=== PATIENT | male | born 1975 | race Caucasian/White ===

== ENCOUNTER 2023-08-13 09:39 | Emergency (ER) | payer BC, OTHER, SELFPAY ==
[2023-08-13 09:45] VITALS: BP 135/92
[2023-08-13 10:31] LABS: % Basophils 1.4 % (0-2); % Eosinophils 0.7 % (0-6); % Immature Granulocytes 0.4 % (0-0.5); % Lymphocytes 22.2 % (20.5-51.1); % Monocytes 11.9 % (1.7-9.3); % Neutrophils 63.4 % (42.2-75.2); Absolute Basophils 0.1 10^3/uL (0-0.2); Absolute Lymphocytes 1.2 10^3/uL (1.2-3.4); Absolute Monocytes 0.7 10^3/uL (0.1-0.6); Absolute Neutrophils 3.5 10^3/uL (1.4-6.5); Hematocrit 46.8 % (39.0-52.0); Hemoglobin 16.3 g/dL (13.0-18.0); Mean Corp Hgb Conc. 34.8 g/dL (33.0-37.0); Mean Corpuscular Hgb 31.7 pg (27.0-31.0); Mean Corpuscular Volume 91.1 fL (80.0-94.0); Mean Platelet Volume 8.7 fL (7.4-10.4); Nucleated Red Blood Cells % 0 % (-); Platelet Count 120 10^3/uL (130-400); Red Blood Cell Count 5.14 10^6/uL (4.70-6.10); Red Cell Dist. Width 13.2 % (11.5-14.5); White Blood Cell Count 5.6 10^3/uL (4.8-10.8)
[2023-08-13 10:32] LABS: Venous Blood Gas B.E. 4.1 mmol/L (-4 to +4); Venous Blood Gas HCO3 27.6 mmol/L (22-27); Venous Blood Gas O2 Sat % 96.3 %; Venous Blood Gas O2 Therapy 21; Venous Blood Gas pCO2 37 mmHg (35-48); Venous Blood Gas pH 7.48 (7.32-7.43); Venous Blood Gas pO2 75 mmHg (30-50)
[2023-08-13] MEDS: PROTONIX IV 80 MG IV (10:41)
[2023-08-13] MEDS: NSS 1000 IV (10:42)
[2023-08-13 10:43] VITALS: BP 130/80
[2023-08-13 10:45] VITALS: BMI 20.7
[2023-08-13 10:45] LABS: Lactic Acid 3.8 mmol/L (0.7-2.0)
[2023-08-13 10:46] LABS: ALT (SGPT) 86 U/L (0-50); AST (SGOT) 131 U/L (17-59); Albumin 5.3 g/dl (3.5-5.0); Alkaline Phosphatase 74 U/L (38-126); Blood Urea Nitrogen 14 mg/dl (9-20); Calcium 9.1 mg/dl (8.4-10.2); Carbon Dioxide 26 mmol/L (22-30); Chloride 94 mmol/L (98-107); Glucose 128 mg/dl (70-99); Lipase 66 U/L (23-300); Potassium 3.6 mmol/L (3.5-5.1); Sodium 140 mmol/L (135-145); Total Bilirubin 1.6 mg/dl (0.2-1.3); Total Protein 7.8 g/dl (6.3-8.2); eGFR > 60.00
[2023-08-13 11:00] VITALS: BP 130/83
[2023-08-13] MEDS: D5/0.9% SODIUM CHLORIDE 1000 IV (11:18)
[2023-08-13 12:00] VITALS: BP 122/75
[2023-08-13] MEDS: ZOFRAN 4 MG IV (12:22)
[2023-08-13] MEDS: ATIVAN 1 MG IV (12:31)
[2023-08-13 13:00] VITALS: BP 122/75
[2023-08-13 14:00] VITALS: BP 114/82
--- NOTE | 2023-08-13 14:18 | ED.GENMED ---
History of Present Illness
General
Chief Complaint: Abdominal Symptoms
Source: patient
Exam Limitations: none
Time Seen by Provider: 08/13/23 10:01
Travel History
Have you had any contact with someone who has COVID-19?: No
Do you have any symptoms of coronavirus? Fever > 100 degrees, chills, cough, shortness of breath, sore throat, loss of taste or smell, muscle aches, or headache?: No
History of Present Illness
History of Present Illness:
48-year-old male with a history of chronic alcoholism who presents with intractable vomiting for the last 3 days. Patient states he has not been able to drink alcohol. He was still drinking alcohol when the symptoms began. He denies seizures. He
denies tremulousness. No melena or hematochezia. No real abdominal pain except when he vomits. Does have a history of pancreatitis
Past History
Past History
ED Past Medical History: Seizures, Psychiatric and Other (Alcohol abuse)
ED Past Surgical History: Other (Right inguinal hernia repair)
Patient has exhibited threatening behavior?: No
PSI?: No
Social History
Tobacco: Non-smoker
Alcohol: Daily
Drug: Marijuana
Personal: Single
Living: [facility]
Family History
Family History: Other
Phy Exam
Physical Exam
Physical Exam:
CONSTITUTIONAL Patient alert and oriented to person, place and time. Well-appearing. Vital signs reviewed.
HEAD atraumatic, normocephalic.
EYES eyelids normal to inspection, Pupils equally round and reactive to light, Extraocular muscles intact, Conjunctiva normal, Sclera normal.
NECK normal range of motion, Trachea midline, no jugular venous distention.
RESPIRATORY CHEST No respiratory distress noted, Chest expansion equal, Bilateral breath sounds clear.
CARDIOVASCULAR regular rate and rhythm, Heart sounds normal.
ABDOMEN mild epigastric tenderness, Bowel sounds normal. No distention.
BACK normal inspection, no obvious deformities
UPPER EXTREMITY range of motion normal, Motor strength normal, no cyanosis, no edema.
LOWER EXTREMITY range of motion normal, Motor strength normal, no cyanosis, no edema.
NEURO Speech normal, No focal motor deficits, Broadalbin coma scale 15, Memory normal, Cranial Nerves intact to screening exam.
SKIN skin warm, dry, and normal in color.
PSYCHIATRIC patient oriented to person place and time, Normal affect.
Course
Orders/Labs/Results
Orders:
Orders
08/13/23 10:08
0.9% Sodium Chloride 1000 ml [Nss] 1,000 ml IV BOLUS
08/13/23 10:17
Pantoprazole [Protonix IV] 80 mg IV NOW STA
08/13/23 10:19
Complete Blood Count/With Diff Urgent
Comprehensive Metabolic Panel Urgent
Lactic Acid Urgent
Lipase Urgent
Venous Blood Gas Urgent
%Oxygen/Room Air: 21
08/13/23 11:00
Dextrose 5%/0.9%Sodchl 1000 ml [D5/0.9% Sodium Chloride] 1,000 ml IV 200 mls/hr
08/13/23 12:17
Ondansetron Injectable [Zofran] 4 mg IV NOW STA
08/13/23 12:24
Lorazepam [Ativan] 1 mg IV NOW STA
Abnormal Lab Results
08/13/23
10:19
MCH 31.7 H pg
(27.0-31.0)
Plt Count 120 L 10^3/uL
(130-400)
Absolute Monos (auto) 0.7 H 10^3/uL
(0.1-0.6)
Monocytes % 11.9 H %
(1.7-9.3)
VBG pH 7.48 H
(7.32-7.43)
VBG pO2 75 H mmHg
(30-50)
VBG HCO3 27.6 H mmol/L
(22-27)
Chloride 94 L mmol/L
(98-107)
Creatinine 0.6 L mg/dL
(0.7-1.3)
Glucose 128 H mg/dl
(70-99)
Lactic Acid 3.8 H mmol/L
(0.7-2.0)
Total Bilirubin 1.6 H mg/dl
(0.2-1.3)
AST 131 H U/L
(17-59)
ALT 86 H U/L
(0-50)
Albumin 5.3 H g/dl
(3.5-5.0)
08/13/23 10:19
08/13/23 10:19
Vital Signs
Initial and Last Documented VS:
Initial Vital Signs
Temp Pulse Resp BP Pulse Ox
97.9 F 98 16 135/92 98
08/13/23 09:45 08/13/23 09:45 08/13/23 09:45 08/13/23 09:45 08/13/23 09:45
Last Documented Vital Signs
Temp Pulse Resp BP Pulse Ox
97.9 F 79 19 114/82 93
08/13/23 09:45 08/13/23 14:15 08/13/23 14:15 08/13/23 14:00 08/13/23 14:15
MDM/Problems Addressed
MDM/Problems Addressed:
Acute alcoholic gastritis, acute alcoholic ketoacidosis, alcohol abuse
*Pulse Oximetry
Patient hypoxic: no
*Critical Care Note
Total Time (30-74mins, 75-104mins- exclusive of procedures): 30 minutes
Data Reviewed
Source: patient
Further Testing Considered But Not Given:
Consider CT but abdomen benign. Patient feels better
Patient Management
Escalation/DeEscalation of care consider admission/obs:
On reevaluation feels much better after IV fluids and IV dextrose. Suspect a mild AKA as well as alcoholic ketoacidosis. Patient is not in withdrawal currently patient does want to quit. Will give him tapering doses of Valium for home management.
Treat with PPI.
ED Attending Note
-
Portions of this chart may have been created with voice recognition software.� Occasional wrong word or��sound alike� substitutions may have occurred due to the inherent limitations of voice recognition software.
Discharge Plan
Departure
Patient Disposition: Home (Routine Discharge)
Date of Disposition: 08/13/23
Time of Disposition: 14:19
Patient with high blood pressure during this ER visit?: No
Discharge Problem:
Acute alcoholic gastritis, Alcohol abuse
Instructions: Gastritis, Clear Liquid Diet, Alcohol Use Disorder ED
Prescriptions:
New
diazepam 10 mg tablet
10 mg PO TID Qty: 16 0RF
Rx Instructions:
Take 10mg TID x 3 days, then 10mg BID x 3 days then 10mg qhs x 3 days
pantoprazole [Protonix] 40 mg tablet,delayed release (DR/EC)
40 mg PO DAILY Qty: 30 0RF
Rx Instructions:
Please take 30 minutes prior to eating or drinking anything in the morning.
ondansetron 4 mg tablet,disintegrating
4 mg PO TID PRN (Reason: nausea and vomiting) Qty: 15 0RF
No Action
olanzapine 10 mg Tablet
10 mg PO BID
Cetaphil Moisturizing Lotion
1 applic TOPICAL BID
Referrals:
NONE,* [Family Provider] -
Activity Restrictions/Additional Instructions:
Please avoid alcohol while taking Valium. Please seek assistance with your alcoholism. Return immediately for intractable vomiting, bloody stool, black stools, bloody vomit, abdominal pain, hallucinations, tremulousness, seizures or any other
concerns
Please stick to a bland diet and advance diet slowly. Maintain proper hydration. See your doctor in the next 2 to 3 days for follow-up and reevaluation
Interventions
Interventions:
*Risk Screen - Suicide Last Done: 08/13/23 10:45
*General Assessment Last Done: 08/13/23 10:45
*Neglect/Abuse Screening Last Done: 08/13/23 10:45
ED- Fall Risk Assessment Last Done: 08/13/23 10:45
*ED COVID-19 Vaccine History Last Done: 08/13/23 09:45
QQ-Qxacfv-Ldbinfgtag Assessment Last Done: 08/13/23 10:45
Discharge Date and Time
Print Language: UKRAINIAN
== END 2023-08-13 15:59 | disposition home or self-care (01) ==
LOC: EMR 09:39
PROVIDERS: EMERGENCY PHYSICIAN Emergency Medicine
DX: K29.20 Alcoholic gastritis without bleeding (principal); R11.10 Vomiting, unspecified; R56.9 Unspecified convulsions; Z87.19 Personal history of other diseases of the digestive system
CPT/HCPCS: 99291; 96374; 96375 ×2; 96361 ×5; 80053; 82805; 83605; 83690; 85025

== ENCOUNTER 2023-09-28 12:37 | Inpatient (IN) | payer BC, OTHER, SELFPAY ==
[2023-09-28] VITALS (14 sets, daily range): BP systolic 96–134; BP diastolic 64–81; BMI 19.8; BMI 19.9
--- NOTE | 2023-09-28 09:38 | EDRN ---
Dr. Osorio in room w/pt at this time.
--- NOTE | 2023-09-28 09:44 | ED.GENMED ---
History of Present Illness
General
Chief Complaint: Abdominal Symptoms
Source: patient
Time Seen by Provider: 09/28/23 09:35
History of Present Illness
History of Present Illness:
48-year-old male with a history of alcohol use disorder, pancreatitis, and seizures presents emergency department with abdominal pain located in the upper epigastric area without radiation that he noted approximately 5 AM today. The pain continues
and is associated with nausea and nonbloody vomiting. He denies coffee-ground emesis, diarrhea, chest pain, dyspnea, fever, chills, back pain, lower abdominal pain, or other complaints. His last drink of alcohol was at approximately 7 AM.
Past History
Past History
ED Past Medical History: Seizures, Psychiatric and Other (Alcohol abuse)
ED Past Surgical History: Other (Right inguinal hernia repair, rectal prolapse)
Patient has exhibited threatening behavior?: No
PSI?: No
Social History
Tobacco: Non-smoker
Alcohol: Daily
Drug: Marijuana
Personal: Single
Living: with roommate
Family History
Family History: Other
Phy Exam
Physical Exam
Physical Exam:
GENERAL: Alert , obviously just vomited
EYE: pupils equal and reactive
NECK: Supple, no significant adenopathy.
ENT: o/p clr, mm very dry, poor dentition
CARDIAC: Regular rate and rhythm .
LUNGS: Clear breath sounds bilaterally, no acute respiratory distress, no wheezes/rales/rhonchi
ABDOMEN: Soft, mild epigastric tenderness, no r/g, no cvat
NEUROLOGICAL: Alert and oriented, no focal neuro deficits
SKIN: Warm and dry, skin intact.
MUSCULOSKELETAL: No edema, well perfused.
PSYCH: Normal and appropriate interaction.
Course
Orders/Labs/Results
Orders:
Orders
09/28/23 Breakfast
Clear Liquid
09/28/23 09:43
Cardiac Monitoring- Treatment ONCE
0.9% Sodium Chloride 1000 ml [Nss] 1,000 ml IV BOLUS
Morphine Sulfate 2 mg IV NOW STA
Ondansetron Injectable [Zofran] 4 mg IV NOW STA
Pantoprazole [Protonix IV] 40 mg IV NOW STA
09/28/23 09:55
Complete Blood Count/No Diff Urgent
Comprehensive Metabolic Panel Urgent
Lipase Urgent
09/28/23 10:59
Morphine Sulfate 6 mg IV NOW STA
US Abdomen Complete/Upper Urgent
Comment:
Reason For Exam: pancreatitis
09/28/23 12:17
Admit/Transfer Patient As Directed
Co-Sign Provider:
Level of Care: Inpatient admission
Assign to:: Medical/Surgical
Physician / Group: priti rios
Diagnosis: acute pancretitis and alcohol use disorder
Reason for Hospitalization: acute pancreatitis and alcohol use disorder
Expected length of stay greater than two midnights?: Yes
ELOS- Estimated Length of Stay in days: 3
I certify the patient meets the requirements for IP care: Yes
PRN Pain Medication Management As Directed
May give lesser potent ordered pain med per pt: Yes
preference::
Protocol:: Medication orders for pain may be administered in a
manner that supports deferring to patient preference
when the pt is:
- Requesting an ordered lesser potent pain medication.
Least to most potent pain medications are defined
as: acetaminophen < NSAID < tramadol < opioids
(morphine, oxycodone, hydromorphone).
- Requesting a lesser dose of the same medication IF
ORDERED.
- Requesting a less intrusive route of administration
if both routes are prescribed by the provider (PO <
IV).
09/28/23 12:24
HYDROmorphone [Dilaudid] 0.5 mg IV Q4HPRN PRN
09/28/23 12:34
Urinalysis Routine
09/28/23 13:00
Lactated Ringers [Lr] 1,000 ml IV 200 mls/hr
09/28/23 14:00
Oxazepam [Serax] 15 mg PO Q8H
Abnormal Lab Results
09/28/23
09:55
Plt Count 116 L 10^3/uL
(130-400)
Carbon Dioxide 21 L mmol/L
(22-30)
Creatinine 0.6 L mg/dL
(0.7-1.3)
Glucose 100 H mg/dl
(70-99)
AST 204 H U/L
(17-59)
ALT 119 H U/L
(0-50)
Lipase 2711 H* U/L
(23-300)
09/28/23 09:55
09/28/23 09:55
Vital Signs
Initial and Last Documented VS:
Initial Vital Signs
Temp Pulse Resp BP Pulse Ox
97.2 F 89 18 107/69 96
09/28/23 09:09 09/28/23 09:09 09/28/23 09:09 09/28/23 09:09 09/28/23 09:09
Last Documented Vital Signs
Temp Pulse Resp BP Pulse Ox
97.2 F 87 17 98/66 95
09/28/23 09:09 09/28/23 13:30 09/28/23 13:30 09/28/23 13:00 09/28/23 13:30
*Critical Care Note
Total Time (30-74mins, 75-104mins- exclusive of procedures): Not Applicable
Update Note
Update Note:
Patient presents to the Emergency Department with ___epigastric pain and vomiting
Number and Complexity of Problems Addressed at the Encounter
� Chronic conditions affecting care:
� Acute Exacerbation and/or Progression of Chronic Illness:
� Differential Diagnosis includes: But not limited to AKA, gastritis, peptic ulcer disease, pancreatitis, etc. etc.
Amount and/or Complexity of Data to be Reviewed and Analyzed
� I performed an independent evaluation of and my interpretation is:
EKG:
CT:
Xrays:
Laboratory Studies:nonspecific lft abnl, lipase 2711
Other:us Peripancreatic fluid collection extending across the midline in to the region of cherelle hepatis which may be related to the given history of pancreatitis. No abnormal focal pancreatic lesion is identified at sonography,
evaluation somewhat limited by overlying bowel gas.
2. Increased hepatic echogenicity most likely representing moderate to severe fatty infiltration.
� Review of other/old records reveals:
� Clinical information was obtained by an independent historian:
� Prescriptions/Medications Considered but not given:
� Further testing considered but not performed:
Risk of Complications and/or Morbidity or Mortality of Patient Management
� Social determinants of health affecting care:
� Discussion with other providers (PCP, Hospitalists, Consultants, etc): lonares saw pt, he is not ready for inpt rehab but willingto consider outpatient,w [facility] is arranging.
� Escalation of care including admission/observation vs risk of discharge considered: pancreatitis noted, suspect etoh related, no stones or other suggested abnl. Hospitliast aware of admission.
ED Attending Note
-
Portions of this chart may have been created with voice recognition software.� Occasional wrong word or��sound alike� substitutions may have occurred due to the inherent limitations of voice recognition software.
Discharge Plan
Departure
Patient Disposition: Admit
Date of Disposition: 09/28/23
Time of Disposition: 11:16
Admit to: Med/Surg
Presentation/result/management discussed w/ accepting MD/DO: Hospitalist
Condition: Fair
Discharge Problem:
Alcohol induced acute pancreatitis
Interventions
Interventions:
*Risk Screen - Suicide Last Done: 09/28/23 09:09
*General Assessment Last Done: 09/28/23 09:09
*Neglect/Abuse Screening Last Done: 09/28/23 09:09
ED- Fall Risk Assessment Last Done: 09/28/23 09:39
*ED COVID-19 Vaccine History Last Done: 09/28/23 09:09
NU-Ufacmx-Cjmayogrtw Assessment Last Done: 09/28/23 10:28
[2023-09-28] MEDS: NSS 1000 IV (10:03)
[2023-09-28] MEDS: PROTONIX IV 40 MG IV (10:04)
[2023-09-28] MEDS: ZOFRAN 4 MG IV ×2 (10:04→20:35)
[2023-09-28] MEDS: MORPHINE SULFATE 2 MG IV (10:04)
--- NOTE | 2023-09-28 10:15 | EDRN ---
James watters/ Cynthia in room w/pt at this time.
[2023-09-28 10:16] LABS: Hematocrit 44.3 % (39.0-52.0); Hemoglobin 15.4 g/dL (13.0-18.0); Mean Corp Hgb Conc. 34.8 g/dL (33.0-37.0); Mean Corpuscular Volume 89.1 fL (80.0-94.0); Mean Platelet Volume 9.5 fL (7.4-10.4); Platelet Count 116 10^3/uL (130-400); Red Blood Cell Count 4.97 10^6/uL (4.70-6.10); Red Cell Dist. Width 12.8 % (11.5-14.5); White Blood Cell Count 6.3 10^3/uL (4.8-10.8)
[2023-09-28 10:21] LABS: ALT (SGPT) 119 U/L (0-50); AST (SGOT) 204 U/L (17-59); Alkaline Phosphatase 85 U/L (38-126); Blood Urea Nitrogen 12 mg/dl (9-20); Calcium 8.8 mg/dl (8.4-10.2); Carbon Dioxide 21 mmol/L (22-30); Chloride 99 mmol/L (98-107); Glucose 100 mg/dl (70-99); Potassium 3.5 mmol/L (3.5-5.1); Sodium 141 mmol/L (135-145); Total Bilirubin 1.3 mg/dl (0.2-1.3); Total Protein 7.1 g/dl (6.3-8.2); eGFR > 60.00
[2023-09-28 10:35] LABS: Lipase 2711 U/L (23-300)
--- NOTE | 2023-09-28 10:56 | EDRN ---
Pt states he remains in severe pain w/ no change post medication administration. TT sent by this RN concerning this to Dr. Osorio at this time.
[2023-09-28] MEDS: MORPHINE SULFATE 6 MG IV (11:07)
--- NOTE | 2023-09-28 12:35 | HPS.HSE ---
Family Physician
-
Family Physician: * NONE
Chief Complaint
-
abd pain
History of Present Illness
48 male history of alcohol use disorder presenting with acute onset of epigastric abdominal pain that began 5:00 this morning, rated 10/10, nonradiating, sharp and constant without improvement. Currently states current pain is 9/10 after receiving
8 mg of morphine in the ED. Associated nausea no vomiting. Has a history of this 2 years ago at that time again related to alcohol use. Still has his gallbladder.
Does not smoke cigarettes, uses medicinal marijuana, daily alcohol use with 2 pints of vodka. Last drink 7 AM prior to presenting to the hospital. Known history of alcohol withdrawal seizures.
Surgical history right-sided inguinal hernia repair
Family history father with colorectal cancer
No home medication use
No known drug allergies
NAD, resting comfortably in bed
Scleral anicteric
Moist mucous membranes
No JVD
CTA bilateral
Normal S1-S2 no murmurs
Soft Epigastric TTP nondistended bowel sounds active
No peripheral pitting edema
Moves extremities spontaneously
AAOx3
Acute pancreatitis
Likely secondary to alcohol use disorder. Abdominal ultrasound pending.
-IV fluids with LR at a rate of 2
-IV analgesia
-IV antiemetics
-N.p.o.
Alcohol use disorder with known history of alcohol withdrawal seizure
-Start jiozvf-ets-pbdyf Serax 15 mg every 8, wean as tolerated
-MSAS protocol along with Ativan ordered as needed
-Thiamine IV
-Folate IV, transition to p.o. once n.p.o. status lifted
Metabolic acidosis. Suspect multifactorial in the setting of starvation ketosis and alcohol ketosis. Can check urine analysis for urine ketones. Provide IV fluids expect to improve. If determined to be starvation ketosis may need to consider
dextrose containing LR
Medical History
Past Medical History
Past Medical History: Reports Other
Past Surgical History: Reports Other
Social History
Tobacco: Non-smoker
Alcohol: Chronic Alcoholic
Drug: Marijuana (Medicinal)
Employment: Employed (at [employer], works as lpn private duty or pumps gas)
Family History
Family History: Cancer
Allergies / Home Medications
Allergies reflects when Allergies were last updated in ipsy.
Home Medications with original date entered in ipsy
Allergy/Medication List:
Allergies
Allergy/AdvReac Type Severity Reaction Status Date / Time
No Known Allergies Allergy Verified 09/28/23 09:09
Home Medications
No Meds [No Current Medications] 09/28/23
Review of Systems
-
A 12 point ROS was completed and negative except as noted: Yes
Physical Exam
Vital Signs
Vital Signs
Temp Pulse Resp BP Pulse Ox
97.2 F 88 20 101/75 99
09/28/23 09:09 09/28/23 11:00 09/28/23 11:00 09/28/23 11:00 09/28/23 11:00
Physical Exam
General: Pain
Laboratory Results
-
09/28/23 09:55
09/28/23 09:55
Laboratory Results
Total Bilirubin 1.3 mg/dl (0.2-1.3) 09/28/23 09:55
AST 204 U/L (17-59) H 09/28/23 09:55
ALT 119 U/L (0-50) H 09/28/23 09:55
Alkaline Phosphatase 85 U/L (38-126) 09/28/23 09:55
Lipase 2711 U/L (23-300) H* 09/28/23 09:55
Impression/Plan
-
ivf
antiemetics
iv analgesics
[2023-09-28] MEDS: SERAX 15 MG PO ×2 (15:21→22:50)
[2023-09-28] MEDS: LR 1000 IV ×3 (15:29→21:58)
[2023-09-28 16:43] LABS: Magnesium 1.4 mg/dl (1.6-2.3); Phosphorus 4.8 mg/dl (2.5-4.5)
[2023-09-28] MEDS: THIAMINE INJECTION 200 MG IV (18:12)
[2023-09-28] MEDS: LOVENOX 40 MG SC (18:13)
[2023-09-28] MEDS: FOLVITE 50.2 MG IV (18:35)
[2023-09-28] MEDS: ATIVAN 1 MG PO (21:13)
[2023-09-29] MEDS: THIAMINE INJECTION 200 MG IV ×3 (00:12→15:35)
[2023-09-29 00:33] LABS: Urine Albumin Negative (Neg - Trace); Urine Bilirubin Negative (Negative); Urine Character Clear (Clear); Urine Color Yellow; Urine Glucose 3+ (Negative); Urine Ketone 3+ (Negative); Urine Leukocyte Negative (Negative); Urine Nitrite Negative (Negative); Urine Occult Blood Negative (Negative); Urine Specific Gravity 1.025 (<1.030); Urine Urobilinogen Negative (Neg - 1+)
[2023-09-29] MEDS: ATIVAN 1 MG PO (02:04)
[2023-09-29] MEDS: LR 1000 IV ×5 (03:03→21:58)
[2023-09-29] MEDS: SERAX 15 MG PO ×3 (05:25→21:54)
[2023-09-29 07:40] VITALS: BP 129/87
[2023-09-29] MEDS: DILAUDID 0.5 MG IV ×3 (08:16→20:14)
[2023-09-29] MEDS: ZOFRAN 4 MG IV ×2 (08:16→15:35)
--- NOTE | 2023-09-29 11:55 | W.PN.HOSP.TC ---
Addendum entered and electronically signed by Brennan Hilliard MD 09/29/23 11:59:
NAD, resting comfortably in bed
Scleral anicteric
Moist mucous membranes
No JVD
CTA bilateral
Normal S1-S2 no murmurs
Soft epigastric tenderness nondistended bowel sounds active
No peripheral pitting edema
Moves extremities spontaneously
AAOx3
Original Note:
Today's Communication/Plan
-
Collicular liquid diet advance as tolerated
IV fluids antiemetics
Continue thiamine folate IV
Assessment / Plan
Assessment / Plan
Acute pancreatitis
Likely secondary to alcohol use disorder. Abdominal ultrasound pending.
-IV fluids with LR at a rate of 200
-IV analgesia
-IV antiemetics
-CLD advance as tolerated
Alcohol use disorder with known history of alcohol withdrawal seizure
-Start [id number]-mwt-brgmn Serax 15 mg every 8, wean as tolerated
-MSAS protocol along with Ativan ordered as needed
-Thiamine IV
-Folate IV
Anticipated Discharge: Today
Subjective/Interval History
-
Date of Service: September 29, 2023
Seen and examined. Feels better. Continues to have abdominal pain epigastric slightly improved however lower abdominal pain improved significantly. He would like to continue on a clear liquid diet today. Stool is liquid.
From a alcohol withdrawal standpoint tolerating well. Without evidence of delirium tremens at this time however we are only at the 28-hour hian
Objective Data
-
Vital Signs:
Vital Signs
Temp Pulse Resp BP Pulse Ox
98.6 F 81 18 129/87 95
09/29/23 07:40 09/29/23 07:40 09/29/23 07:40 09/29/23 07:40 09/29/23 07:40
I&O
09/28/23 09/29/23 09/30/23
06:59 06:59 06:59
Intake Total 2940 / 2940
Output Total 300 / 300
Balance 2640 / 2640
--- NOTE | 2023-09-29 14:16 | CM ---
Reviewed the chart notes and spoke with the patient at the bedside. The patient resides with his landlady in a two story home with six steps to enter. The patient reports no DME/VN/SNF in the past. The patient confirmed his pharmacy of choice is
the [facility]. The patient spoke with James from [facility] and will follow-up with him once discharged for outpatient rehab. CM continues to be available to patient/family and is monitoring medical plan for needs at discharge.
Plan: Discharge to home when medically stable. No needs identified at this time.
[2023-09-29 15:30] VITALS: BP 136/84
[2023-09-29] MEDS: FOLVITE 50.2 MG IV (17:31)
[2023-09-29] MEDS: LOVENOX 40 MG SC (17:31)
--- NOTE | 2023-09-29 21:24 | PTCARENOTE ---
Received patient for the night. Patient complains of 5/10 mid abdominal pain, but reports it has been improving. PRN pain medication administered. No other complaints from the pt at this time. Call [facility] within reach.
[2023-09-29 23:05] VITALS: BP 145/84
[2023-09-30] MEDS: LR IV (00:23)
[2023-09-30] MEDS: THIAMINE INJECTION 200 MG IV ×2 (00:26→08:32)
[2023-09-30] MEDS: LR 1000 IV ×2 (03:12→08:41)
[2023-09-30] MEDS: SERAX 15 MG PO (05:15)
[2023-09-30 06:51] LABS: Hematocrit 39.3 % (39.0-52.0); Hemoglobin 14.1 g/dL (13.0-18.0); Mean Corp Hgb Conc. 35.9 g/dL (33.0-37.0); Mean Corpuscular Hgb 31.8 pg (27.0-31.0); Mean Corpuscular Volume 88.7 fL (80.0-94.0); Red Blood Cell Count 4.43 10^6/uL (4.70-6.10); Red Cell Dist. Width 12.2 % (11.5-14.5); White Blood Cell Count 9.8 10^3/uL (4.8-10.8)
[2023-09-30 07:15] LABS: Blood Urea Nitrogen 4 mg/dl (9-20); Calcium 8.3 mg/dl (8.4-10.2); Carbon Dioxide 33 mmol/L (22-30); Chloride 87 mmol/L (98-107); Estimated Creatinine Clearance > 125 ml/min; Glucose 116 mg/dl (70-99); Potassium 3.5 mmol/L (3.5-5.1); Sodium 128 mmol/L (135-145); eGFR > 60.00
[2023-09-30 07:32] VITALS: BP 132/83
[2023-09-30 08:18] LABS: Mean Platelet Volume 9.5 fL (7.4-10.4); Platelet Count 89 10^3/uL (130-400)
[2023-09-30 09:34] LABS: Blood Urea Nitrogen 4 mg/dl (9-20); Calcium 8.4 mg/dl (8.4-10.2); Carbon Dioxide 30 mmol/L (22-30); Chloride 88 mmol/L (98-107); Estimated Creatinine Clearance > 125 ml/min; Glucose 117 mg/dl (70-99); Potassium 3.1 mmol/L (3.5-5.1); Sodium 128 mmol/L (135-145); eGFR > 60.00
--- NOTE | 2023-09-30 10:25 | W.PN.HOSP.TC ---
Today's Communication/Plan
-
able to tolerate advanced diet can dc home
Assessment / Plan
Assessment / Plan
Acute pancreatitis
Likely secondary to alcohol use disorder. Abdominal ultrasound pending.
-IV fluids with LR at a rate of 200
-IV analgesia, discontinue Dilaudid. Start morphine 1 mg as needed every 4 moderate pain, Toradol IV 15 mg every 8 as needed
-IV antiemetics
-Advance diet as tolerated to low fat
Alcohol use disorder with known history of alcohol withdrawal seizure
-Start duhadf-ngy-kvadg Serax 15 mg every 8, wean as tolerated
-MSAS protocol along with Ativan ordered as needed
-Thiamine IV
-Folate IV
-Consult social work for outpatient alcohol rehab resources
If able to tolerate advance diet today can be discharged home
Anticipated Discharge: Today
Subjective/Interval History
-
Date of Service: September 30, 2023
Seen and examined. No new complaints. No acute overnight events.
Tolerating clear liquid diet well. Would like advance diet.
Continues to have abdominal pain however states that the Dilaudid is not working well and would like to try some house or no analgesics support
Objective Data
-
Labs:
Laboratory Results
09/30/23 09/30/23
05:44 08:39
WBC 9.8
Hgb 14.1
Hct 39.3
Plt Count 89 L D
Sodium 128 L D 128 L
Potassium 3.5 3.1 L
Chloride 87 L 88 L
Carbon Dioxide 33 H 30
BUN 4 L 4 L
Creatinine 0.5 L 0.5 L
Glucose 116 H 117 H
Calcium 8.3 L 8.4
Vital Signs:
Vital Signs
Temp Pulse Resp BP Pulse Ox
98.4 F 85 18 132/83 95
09/30/23 07:32 09/30/23 07:32 09/30/23 07:32 09/30/23 07:32 09/30/23 07:32
I&O
09/29/23 09/30/23 10/01/23
06:59 06:59 06:59
Intake Total 2940 / 2940 4080 / 4080
Output Total 300 / 300
Balance 2640 / 2640 4080 / 4080
--- NOTE | 2023-09-30 10:30 | W.DCSUMMARY ---
Discharge Summary
Discharge Data
Date of Admission: 09/28/23
Date of Discharge: 09/30/23
-
Pending Results: No
Hospital Course
48M hx of alcohol induced pancreatitis 2yrs ago now presenting with epigastric abdominal pain found to have a lipase in the 2700 with an abdominal ultrasound finding consistent with acute pancreatitis as there was peripancreatic fluid collection.
Was started on IV fluids analgesics and clear liquid diet. Throughout hospitalization continued abdominal pain however was tolerating diet well. Therefore at this time we will plan to discharge home with outpatient GI and PCP follow-up. Avoid
alcohol use. Outpatient AA
IMPRESSION:
1. Peripancreatic fluid collection extending across the midline in to the region of cherelle hepatis which may be related to the given history of pancreatitis. No abnormal focal pancreatic lesion is identified at sonography, evaluation somewhat
limited by overlying bowel gas.
2. Increased hepatic echogenicity most likely representing moderate to severe fatty infiltration.
Discharge Plan
-
Patient Disposition: Home (Routine Discharge)
Discharge Diagnosis/Procedures: Alcohol induced pancreatitis
Alcohol use disorder with withdrawal
History of alcohol induced acute pancreatitis
Diet: As tolerated, Low Fat and Low Cholesterol
Activity: As tolerated
Activity Restrictions/Additional Instructions:
Presented with epigastric abdominal pain found to have a lipase in the 2700 with an abdominal ultrasound finding consistent with acute pancreatitis as there was peripancreatic fluid collection. Was started on IV fluids analgesics and clear liquid
diet. Throughout hospitalization continued abdominal pain however was tolerating diet well. Therefore at this time we will plan to discharge home with outpatient GI and PCP follow-up. Avoid alcohol use. Outpatient AA
IMPRESSION:
1. Peripancreatic fluid collection extending across the midline in to the region of cherelle hepatis which may be related to the given history of pancreatitis. No abnormal focal pancreatic lesion is identified at sonography, evaluation somewhat
limited by overlying bowel gas.
2. Increased hepatic echogenicity most likely representing moderate to severe fatty infiltration.
Instructions: Acute pancreatitis, Alcohol Use Disorder (DC)
Referrals:
Mar Lara MD [Active] - in two weeks
Sanjuana Pacheco DO [Active] - in two to four weeks
Prescriptions:
New
thiamine HCl (vitamin B1) 100 mg tablet
100 mg PO DAILY Qty: 30 0RF
folic acid 1 mg tablet
1 mg PO DAILY Qty: 30 0RF
Discharge Orders:
Discharge Patient (As Directed); Ordered 09/30/23
Ordered By: Brennan Hilliard
Discharge Date and Time
Print Language: AMERICAN
[2023-09-30 13:07] VITALS: BP 119/78
== END 2023-09-30 13:45 | disposition home or self-care (01) | DRG 439 ==
LOC: 2 NORTH 12:37
PROVIDERS: ADMITTING PHYSICIAN Hospitalist; EMERGENCY PHYSICIAN Emergency Medicine
DX: K85.20 Alcohol induced acute pancreatitis without necrosis or infection (principal); E87.20 Acidosis, unspecified; F10.139 Alcohol abuse with withdrawal, unspecified; E88.89 Other specified metabolic disorders; R56.9 Unspecified convulsions; Z80.0 Family history of malignant neoplasm of digestive organs
CPT/HCPCS: 76700; 80048; 80053; 81003; 83690; 83735; 84100; 85027; 87070; 87147; 96361; 96374; 96375; 96376; 99284